=== PATIENT | male | born 1960 | race Caucasian/White ===

== ENCOUNTER 2023-08-09 09:11 | Outpatient (AMB) | payer OTHER, SELFPAY ==
--- NOTE | 2023-08-09 09:22 | A.SPINEOV_ITS ---
Intake Intake Visit Reasons: low back pain Intake Note: Mr. Gutiérrez is here today c/o low back pain. MRI done @ [facility]/brought disc. 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 Wang Thank you for referring Russell Gutiérrez to the office today with a chief complaint of severe low back pain and bilateral leg pain. HPI: This 63-year-old male is suffering from severe lumbar sacral back pain radiating down both legs with the right side is more affected than the left side. The symptoms have been going on for years. He tried to manage the symptoms with heating and eyes pads, chiropractic treatments epidural steroid injections and anti-inflammatory drugs. In February 2023 he hit a pothole, which aggravate the symptoms to on tolerable levels. The pain is constantly present, day and night. The pain radiates from his lumbar sacral spine into his right leg to the calf and top of his foot. On the left side it only goes to his knee. He would rate the pain 8/10 on a daily basis. The chiropractor told him that he could not helping any longer. Last epidural steroid injection was approximately 4 years ago and never worked. He denies weakness, numbness bowel or urinary problems. 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 He is taking care of his disabled parents, which is very hard to do. The following conservative treatment options were tried without success antiinfl ammatories, tylenol, physician guided home exercise plan, cortisone shots PMH: TBI, left knee surgery, 2 times or rotator cuff repair. Social history: Used to smoke. Medications: Trazodone, Cymbalta, Tylenol 4 g per day Allergies: NKDA Physical Exam: Pleasant male who is in obvious agony. He stands in a flexed position. On inspection of the lumbar spine there is a lumbar scoliotic curve towards the right side. Flexion-extension is restricted and painful. Straight leg raise produces back pain. Motor exam shows a grade 4/5 weakness of the iliopsoas. The remainder of the muscle groups are intact. Sensory exam is intact. No pathological reflexes. Radiological Studies: An x-ray lumbar spine of 06/07/2023 was compared to an x- ray of 09/01/2018 and shows severe degenerative disc disease L2-3, L3-4 and L4-5 with a near collapse of these levels and a progressive lumbar degenerative scoliosis with curvature towards the right side. I interpreted the x-ray is having 6 lumbar vertebrae. An MRI of the lumbar spine MRI done at [place] on 06/12/2023 shows again the lumbar degenerative scoliosis and severe lumbar degenerative disc disease of the above-mentioned levels causing moderate to severe spinal stenosis L3-4 and L4-5 and severe right L4 foraminal stenosis. Impression/Plan: This patient is suffering from intractable low back pain and lumbar radiculopathy due to lumbar degenerative scoliosis, severe degenerative disc disease and spinal stenosis, not respond to conservative treatments. I offered him a minimally invasive correction of his lumbar degenerative scoliosis that will indirectly decompress the neural structures to treat his back pain and lumbar radiculopathy. We discussed to minimally invasive approaches, the 1st being in the oblique lateral lumbar interbody fusion and the 2nd 1 being in the oblique lumbar interbody fusion. We decided on the last 1 as this has slightly less chance of nerve injury during the procedure although both procedures are ve ry safe. I discussed procedure, possible complications and expected postoperative course. He is going to discuss the plan at home but he is scheduled for 10/16/2023 for an oblique lumbar interbody fusion L2-3, L3-4 and L4-5. Thank you for allowing me to participate in your patients care. total time spent was 50 minutes in counseling ,coordination of plan, personal review of imaging, surgical decision making and subsequent plan Estrada Ashby MD, PhD Spine Fellowship Trained Neurosurgeon Director, [facility] Coding Level of Care Code New Pt Level 4 (92988) Diagnoses Scoliosis of lumbar region due to degenerative disease of spine in adult M41.56 Lumbar stenosis with neurogenic claudication M48.062
== END 2023-08-09 10:41 | disposition home or self-care (01) ==
PROVIDERS: PCP Internal Medicine; Visit Provider Neurological Surgery
DX: M41.56 Other secondary scoliosis, lumbar region (principal); M48.062 Spinal stenosis, lumbar region with neurogenic claudication
CPT/HCPCS: 99204

== ENCOUNTER → 2023-08-09 09:11 | Outpatient (BNVA) | payer OTHER, SELFPAY | PROVIDERS: PCP Internal Medicine; Visit Provider Neurological Surgery ==

== ENCOUNTER 2023-10-16 06:23 | Inpatient (IN) | payer OTHER, SELFPAY ==
--- NOTE | 2023-10-02 | ECG_ITS ---
Test Reason : preop Blood Pressure : / mmHG Vent. Rate : 059 BPM Atrial Rate : 059 BPM P-R Int : 128 ms QRS Dur : 086 ms QT Int : 372 ms P-R-T Axes : 039 -08 052 degrees QTc Int : 368 ms Sinus bradycardia Minimal voltage criteria for LVH, may be normal variant ( R in aVL ) Borderline ECG No previous ECGs available Referred By: Ilsa Shepherd Electronically Signed By:JAVIER ANDINO MD
[2023-10-02 12:56] VITALS: BP 150/90; PULSE 77; RESP 20; O2SAT 98; BMI 27.7
--- NOTE | 2023-10-02 13:08 | P.CONAN_ITS ---
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 Last seen 2019. Medically optimized per PCP No recent illness CP with anxiety only. No SOB Smoker. PARVEEN. Rx'd CPAP but does not use AAA. 4.3cm in 2021 (increased from 2019) Hep C tx completed ~ 5 years ago Current front upper tooth with concern for infection. Pt trying to make dental appointment. ~UPDATE: Pt went to walk-in and rec'd clindamycin for dental infection. Will be completed by DOS. STEVIE Active Problems Active Problems: All Active Problems (Updated 10/02/23 @ 12:52 by Deb Rapp RN) Lumbar stenosis with neurogenic claudication (Acute) Scoliosis of lumbar region due to degenerative disease of spine in adult (Acute) Past Medical History Medical History Arthritis Back pain Sleep apnea Hepatitis C Ascending aorta dilatation History of traumatic head injury Family History Family history of problems with anesthesia: No Surgical History Surgical History Hx of fusion of cervical spine H/O colonoscopy Hx of arthroscopic knee surgery Hx of repair of rotator cuff History of Problems with Anesthesia: No Social History (Updated 09/29/23 @ 09:22 by Deb Rapp RN) 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 If so, by whom?: No Are you DNR?: No Advance Directives: No (states daughter is primary contact) Advance Directives Information Provided: Yes (brochure given) Advance Directives on File: No Recently lost weight without trying: No Eating poorly because of decreased appetite: No Nutrition Risks: No Nutritional Risk Poor oral hygiene: No (painful tooth upper right front) Meds Allergies Allergy/AdvReac Type Severity Reaction Status Date / Time morphine AdvReac Intermediate does not Verified 10/02/23 13:05 relieve pain Home Medications Medication Instructions Recorded Confirmed Last Taken Type hydroxyzine HCl 50 mg tablet 50 mg PO Q8H PRN anxiety 09/29/23 10/02/23 Unknown History trazodone 100 mg tablet 100 mg PO BEDTIME 09/29/23 10/02/23 Unknown History Exam Exam Date and Time: October 02, 2023 1308 Height,Weight and Vital Signs: Height 5 ft 10 in Weight 87.543 kg Last Vital Signs Pulse 77 10/02/23 12:56 Resp 20 10/02/23 12:56 BP 150/90 H 10/02/23 12:56 Pulse Ox 98 10/02/23 12:56 O2 Del Method Room Air 10/02/23 12:56 Airway TM Dist: >3cm (s/p c spine fused ~2011) Neck ROM: Full Loose/Missing/Broken Teeth: Yes (Broken throughout, many pulled. Poor dentition) Heart: RRR Lungs: CTAB Assessment and Plan Assessment Anesthesia Assessment: Anesthesia Plan Discussed, Smoking Cess. 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 If so, by whom?: No Are you DNR?: No Advance Directives: No (states daughter is primary contact) Advance Directives Information Provided: Yes (brochure given) Advance Directives on File: No Recently lost weight without trying: No Eating poorly because of decreased appetite: No Nutrition Risks: No Nutritional Risk Poor oral hygiene: No (painful tooth upper right front) Meds Allergies Allergy/AdvReac Type Severity Reaction Status Date / Time morphine AdvReac Intermediate does not Verified 10/02/23 13:05 relieve pain Home Medications Medication Instructions Recorded Confirmed Last Taken Type hydroxyzine HCl 50 mg tablet 50 mg PO Q8H PRN anxiety 09/29/23 10/02/23 Unknown History trazodone 100 mg tablet 100 mg PO BEDTIME 09/29/23 10/02/23 Unknown History Exam Airway Mallampati Class: III Assessment and Plan Assessment Anesthesia Assessment: Chart Reviewed Final Anesthetic Review NPO: Yes ASA Class: III Final Preanesthetic Review: No Changes in Pt Med Stat, Meds/Allgs Chart Reviewed, Consent Obtained/Reviewed and Anes Risks/Benef Reviewed Patient Risk: Intermediate Procedure Risk: Intermediate Anesthetic Plan Anesthetic Plan: GA Disposition: Standard PACU
[2023-10-02 14:45] LABS: Hematocrit 46.2 % (42.0-52.0); Hemoglobin 15.6 g/dl (14.0-18.0); Mean Corpuscular HGB Conc 33.8 g/dl (31.0-36.0); Mean Corpuscular Hemoglobin 33.4 pg (27.0-33.0); Mean Corpuscular Volume 98.9 fL (80.0-98.0); Mean Platelet Volume 9.1 fL (9.4-12.4); Platelet Count 254 X10*3/uL (160-400); Red Blood Count 4.67 X10*6/uL (4.60-5.80); Red Cell Distribution Width 13.7 % (11.0-16.0); White Blood Count 6.4 X10*3/uL (4.8-10.8)
[2023-10-02 15:25] LABS: Alanine Aminotransferase 24 U/L (0-40); Albumin Level 4.1 g/dL (3.5-5.0); Alkaline Phosphatase 84 U/L (39-117); Anion Gap 12 (12-20); Aspartate Amino Transferase 19 U/L (5-37); Bilirubin Total 0.5 mg/dL (0.0-1.0); Blood Urea Nitrogen 9 mg/dL (9-16); Calcium 9.4 mg/dL (8.4-10.2); Carbon Dioxide 26 mmol/L (22-29); Chloride 105 mmol/L (96-108); Creatinine Clr Calc Pharmacy 90.9; Estimated Glomerular Filt Rate > 60; Glucose Random 101 mg/dL (60-115); Potassium 3.7 mmol/L (3.3-5.1); Sodium 139 mmol/L (135-145); Total Protein 6.9 g/dL (6.5-8.0)
[2023-10-16] VITALS (13 sets, daily range): BP systolic 105–138; BP diastolic 57–79; PULSE 61–106; RESP 14–21; TEMP 36.1–36.7; O2SAT 94–100; BMI 30.7
--- NOTE | ~2023-10-16 | FL_ITS ---
EXAMINATION: XR FLUOROSCOPY WITH IMAGES CLINICAL INFORMATION: Reason for exam L2-L5 OLIF COMPARISON: None available. TECHNIQUE: Fluoroscopy Supervised By: Symone. Fluoroscopy Time: 3 minutes. Cumulative Dose: 199.1 mGy. DAP: 3.104 Gycm2. Images: 4. FINDINGS: On provided imaging there appears to be pedicle screw and meeta fixation L2-L5 with interbody spacers. The actual levels are difficult to evaluate well on provided imaging. Hardware appears intact. FL/FL guidance in OR IMPRESSION: Intraoperative fluoroscopy for orthopedic procedure.
[2023-10-16] MEDS: Gabapentin 300 MG CAPSULE PO (06:40)
[2023-10-16] MEDS: methocarbamoL 750 MG TABLET PO (06:40)
--- NOTE | 2023-10-16 07:04 | MHC.SHP ---
Pre-Procedural Eval Section A Date of Service: 10/16/23 The patient is an INPATIENT: No Changes since office visit: No Cold of Flu in the past 2 weeks, No New Medical Problems, No Changes in Medication and No Patient answered all questions The History & Physical has been completed within 30 days and I have reviewed it.: No Section B Chief Complaint: S/P L2-3, L3-4 and L4-5 OLIF Allergies: Allergies Allergy/AdvReac Type Severity Reaction Status Date / Time morphine AdvReac Intermediate does not Verified 10/02/23 13:05 relieve pain Review of Systems Sugical H&P ROS: Negative: Constitution, Cardiovascular, Respiratory, Neurological, Psychiatric, Hem-Onc, Allergic/Immunologic, Gastrointestinal, Genitourinary, Musculoskeletal, Integumentary, Endocrine and Eyes/Ears/Nose/Throat Exam Surgical H&P Exam: Not Evaluated: HEENT, Not Evaluated: Heart, Not Evaluated: Lungs, Not Evaluated: Extremities, Not Evaluated: Abdomen, Not Evaluated: Skin and Not Evaluated: Neurological Plan Diagnosis/Plan: Unchanged I have reviewed the history and physical and performed a pertinent physical examination on my patient. No changes have occurred unless specified. L2-5 OLIF Time Spent With Patient Time: Total time managing care of this patient today _12___ minutes.
--- NOTE | 2023-10-16 07:29 | PHA.MEDREC ---
Pharmacy Consult ? Medication Reconciliation Pharmacy has completed the medication reconciliation. Reviewed med rec done by nursing
--- NOTE | 2023-10-16 11:13 | W.PM.OPN ---
Operative Note Operative Note Date of Service: 10/16/23 Narrative: Preop Diagnosis: 1.) Lumbar degenerative scoliosis; back pain; lumbar radiculopathy I Procedure: L2-3, L3-4 and L4-5 discectomy, arthrodesis and implantation cage through an anterolateral, retroperitoneal approach; posterior instrumented fusion L2-L5; allograft Consent Informed Consent was obtained for this operation. I have explained the nature, purpose and benefits of the operation. I have discussed the risks and benefit of the operation including possible complications or adverse events with patient/family. Alternative(s) were discussed with the patient with their relative benefits and risks as well as the consequences of not accepting the operation were included in obtaining consent. Surgeon: EDWINA ARTIS MD, PHD Procedure Assisted By: Kobe RDZ Description of Procedure this 63-year-old male is suffering from severe back pain and leg pain due to her lumbar degenerative scoliosis. The patient was offered an oblique lumbar interbody fusion L2-L5 to correct the scoliosis and to indirectly decompress the nerve structures. The procedure and complications were explained. The patient was consented. The patient was brought to the operating room and endotracheally intubated. The patient was turned in a lateral position with the left side up. Prep and drape was done followed by timeout. A small incision was made in the left lower abdominal quadrant. The muscle fascia was opened after which the 3 muscle layer was split to enter the retroperitoneal space. Dilators were docked in the anterior one third of the L4-5 disc space followed by a retractor. The retractor was opened. The L4-5 disc space was exposed. An annulotomy was done after which an elevator Diaz was used to release the disc material from its endplates and to perforate the contralateral side. A partial discectomy was done. An 8 mm and 10 mm height trial implants were inserted. The discectomy was completed. The endplates were prepared. An 55 x 10 mm with 6degree lordosis 4 web cage filled with allograft was inserted into the disc space under fluoroscopic guidance. Then attention was turned to the L3-4 disc space. A lateral osteophyte was opened with an osteotome after which a 7 mm an 8 mm trial implants were inserted. This disc space was completely collapsed and therefore no significant disc removal needed to be done. A 55 x 8 mm and 0 degree lordosis 4 web cage filled with allograft was inserted into the disc space under fluoroscopic guidance. Finally the L2-3 level was addressed where a 55 x 10 mm and severe degree lordosis 4 web cage was inserted with allograft.This resulted in correction of the lumbar degenerative scoliosis in the coronal plane and sagittal plane with reestablishment of the lumbar lordosis. The retractor was removed. Hemostasis was done. The incision was closed in 2 layers. Steri-Strips used to approximate incision. An OpSite with Tegaderm was used to cover the incision. This marked first part of the procedure. The patient was turned prone on the Imtiaz spine table. 2C arms were installed for fluoroscopy. Prep and drape was done followed by a second timeout. A total of 8 paramedian incisions were made lateral from the L2, L3, L4 and L5 pedicles. The muscle fascia was opened after which the muscle layer was split bluntly to expose the posterolateral gutter. The following steps were taken for each level. A pediguard tap was used to create a transpedicular trajectory into the vertebral body. A K wire was placed. A specially designed instrument was advanced over the K wire to decorticate the posterolateral gutter in preparation for the posterolateral fusion. A pedicle screw was advanced over the K wire and the K wire was removed. The steps were done for the bilateral L2, L3, L4 and L5 pedicles. A total of 8 screws were placed with a diameter of 6.5 x 50 mm in the L2, L3 and L4 pedicles and 6.5 x 45 mm in the bilateral L5 pedicles. Pedicle screws were connected with 95 mm meeta on the right and 100 mm meeta on the left and locked down with locking caps. The extension towers were removed. The posterolateral gutter was filled with allograft to complete the posterolateral L2-L5 fusion Hemostasis was done and the incision was closed in 2 layers. Steri-Strips were used to approximate the incision. An OpSite were taken and was used to cover the incision. All sponge and needle counts were correct. Patient was extubated and transferred in stable is to recovery room. The physician assistant director of residence life took part in the interpretation of the x-rays, placement of pedicle screws and closure of the incisions. Anesthesia: General Estimated Blood Loss (ml): 150 mL Duration of Surgery: 3 hours Complications: None Postoperative Plan: Admit to inpatient for observation
--- NOTE | 2023-10-16 11:42 | PHA.MEDREC ---
Pharmacy Consult ? Medication Reconciliation Pharmacy has reviewed the medication reconciliation.
[2023-10-16] MEDS: fentaNYL citrate/PF 100 MCG/2 ML VIAL 50 MCG IVPUSH ×2 (12:12→12:20)
[2023-10-16] MEDS: HYDROmorphone HCl 0.5 MG/0.5 ML SYRINGE IVPUSH (12:46)
[2023-10-16] MEDS: oxyCODONE HCl Immed Release 5 MG TABLET 10 MG PO (13:04)
[2023-10-16] MEDS: Ketorolac Tromethamine 15 MG/ML VIAL IVPUSH ×2 (14:06→20:31)
[2023-10-16] MEDS: 0.9 % Sodium Chloride 1,000 ML 75 ML IVCONT (14:08)
[2023-10-16] MEDS: ceFAZolin Sodium/Dextrose,Iso 2 GM/50 ML PIGGYBACK IV ×2 (14:50→19:46)
[2023-10-16] MEDS: Acetaminophen 1,000 MG/100 ML PIGGYBACK 400 MG IV ×2 (15:37→22:21)
[2023-10-16] MEDS: HYDROmorphone HCl 1 MG/ML SYRINGE IVPUSH ×2 (16:09→22:42)
[2023-10-16] MEDS: Docusate Sodium 100 MG CAPSULE PO (20:31)
[2023-10-16] MEDS: hydrOXYzine HCL 50 MG TABLET PO (20:31)
[2023-10-16] MEDS: oxyCODONE HCl Immed Release 5 MG TABLET PO (20:31)
[2023-10-16] MEDS: traZODone HCL 100 MG TABLET PO (20:31)
[2023-10-17] MEDS: oxyCODONE HCl Immed Release 5 MG TABLET PO (00:20)
[2023-10-17] MEDS: ceFAZolin Sodium/Dextrose,Iso 2 GM/50 ML PIGGYBACK IV (00:21)
[2023-10-17] MEDS: Ketorolac Tromethamine 15 MG/ML VIAL IVPUSH ×4 (01:50→19:46)
[2023-10-17] MEDS: 0.9 % Sodium Chloride 1,000 ML 75 ML IVCONT (02:04)
[2023-10-17] MEDS: HYDROmorphone HCl 0.5 MG/0.5 ML SYRINGE IVPUSH ×2 (02:24→12:26)
[2023-10-17 03:45] VITALS: BP 111/58; PULSE 73; RESP 16; TEMP 36.4; O2SAT 98
[2023-10-17] MEDS: Acetaminophen 1,000 MG/100 ML PIGGYBACK 400 MG IV ×4 (04:54→21:54)
[2023-10-17] MEDS: oxyCODONE HCl Immed Release 5 MG TABLET 10 MG PO ×4 (05:03→19:45)
[2023-10-17] MEDS: HYDROmorphone HCl 1 MG/ML SYRINGE IVPUSH (05:58)
[2023-10-17 07:17] VITALS: BP 112/53; PULSE 70; RESP 16; TEMP 36.8; O2SAT 96
[2023-10-17] MEDS: Docusate Sodium 100 MG CAPSULE PO ×2 (07:40→22:59)
--- NOTE | 2023-10-17 07:52 | HO.NEURO.PN ---
Neurosurgery Operative Note Date of Service: 10/17/23 Narrative: Postoperative day 1. L2-5 minimally invasive oblique lumbar interbody fusion Patient reports back pain, denies any radicular pain down the legs. He does have little bit of groin pain. He has been up walking around, he is voiding and tolerating a diet okay. Afebrile, vital signs stable Physical exam: Patient is awake alert oriented lying bed no acute distress, demonstrates full strength of bilateral lower extremities, abdomen nondistended nontender, left lower quadrant incision clean and dry no signs of hematoma, back incisions have small amount of stating on the right side otherwise clean and dry no signs of hematoma. Impression: Postop day 1. L2-5 minimally invasive oblique lumbar interbody fusion, visually clinically doing okay, he has been up walking around, is voiding and tolerating a diet. He has a somewhat complicated social situation at home and that he is living alone, is requesting another day in the hospital just to improve his mobility before he gets back to his home. Dr. Ashby is I saw him together, we think this is reasonable, we will transition him off IV medications and continue p.o., and plan for discharge tomorrow.
[2023-10-17 08:07] VITALS: BP 112/53; PULSE 70; O2SAT 96
--- NOTE | 2023-10-17 09:08 | HO.POSTANES ---
Post Anesthesia Evaluation Post Anesthesia Evaluation Date of Service: 10/17/23 Vital Signs: Vital Signs Temp Pulse Resp BP Pulse Ox O2 Del Method 10/17/23 08:07 70 112/53 L 96 10/17/23 07:17 98.3 F 70 16 112/53 L 96 Room Air 10/17/23 03:45 97.6 F 73 16 111/58 L 98 Room Air 10/16/23 23:49 98.1 F 88 16 105/63 94 Room Air Anesthesia: General Endotracheal-GETA Mental Status: Awake Pain Control: Satisfactory (mild back pain) Nausea/Vomiting: None Hydration: Adequate Anesthesia-Related Issues: No Anes. Related Issues
--- NOTE | 2023-10-17 09:10 | MHC.CM.PN ---
CM MET WITH PT AT BEDSIDE. 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 INDEPENDENT AT BASELINE, USES CANE FOR MAJOR MOBILITY. + THRIVE ASSESSMENT, RESOURCE GUIDE PROVIDED. PT IS ALSO THINKING OF CHANGING PCP, [facility] PROVIDED WELL. +HCP ON CHART. PCP DR.ANTONE SANTOS DP: HOME, NO SERVICES ANTICIPATED. PT WILL NEED SCRIPT FOR WALKER PER P.T. REC. PT HAS OWN RIDE HOME. CM WILL CONTINUE TO FOLLOW FOR ANY CHANGE IN DC PLAN/NEEDS.
[2023-10-17] MEDS: Nicotine 7 MG PATCH.TD24 TRANSDERMA (10:21)
[2023-10-17 15:51] VITALS: BP 137/63; PULSE 90; RESP 17; TEMP 36.8; O2SAT 100
[2023-10-17 19:30] VITALS: BP 137/77; PULSE 95; RESP 19; TEMP 36.6; O2SAT 98
[2023-10-17] MEDS: traZODone HCL 100 MG TABLET PO (23:00)
--- NOTE | 2023-10-17 23:04 | PC.NURSE ---
patient complained that his pain is not controlled ,but refuses for nurse to contact surgeon to address pain
[2023-10-18] MEDS: Ketorolac Tromethamine 15 MG/ML VIAL IVPUSH ×2 (01:49→07:52)
[2023-10-18 02:49] VITALS: BP 133/68; PULSE 95; RESP 16; TEMP 36.8; O2SAT 96
[2023-10-18] MEDS: Acetaminophen 1,000 MG/100 ML PIGGYBACK 400 MG IV (04:11)
[2023-10-18] MEDS: oxyCODONE HCl Immed Release 5 MG TABLET 10 MG PO ×2 (04:26→10:18)
[2023-10-18] MEDS: Docusate Sodium 100 MG CAPSULE PO (07:52)
[2023-10-18] MEDS: Nicotine 7 MG PATCH.TD24 TRANSDERMA (07:52)
[2023-10-18 08:00] VITALS: BP 128/71; PULSE 79; RESP 18; TEMP 36.9; O2SAT 95
--- NOTE | 2023-10-18 09:08 | P.DS_ITS ---
DS: Providers Provider Date of Service: 10/18/23 Date of admission: 10/16/23 06:23 Primary care physician: Robb Wang III, MD DS: Summary Time Attestation Discharge coordination time: Less than 30 minutes Quality: Safe Use of Opioids Does Pt have an Active Cancer Diagnosis on the Problem List?: No Quality: Stroke Does the patient have a stroke diagnosis?: No Physical Exam Vital Signs: Vital Signs: Last Vital Signs Temp 98.4 F 10/18/23 08:00 Pulse 79 10/18/23 08:00 Resp 18 10/18/23 08:00 BP 128/71 10/18/23 08:00 Pulse Ox 95 10/18/23 08:00 O2 Del Method Room Air 10/18/23 08:00 O2 Flow Rate 2 10/16/23 19:20 BMI result Body Mass Index 30.7 Discharge Plan Discharge Anticipated Discharge Date/Time: 10/18/23 09:08 Patient Disposition: Home, Self-Care Discharge Diagnosis: S/p L2-5 OLIF Referrals: Robb Wang III, MD [Primary Care Provider] - 1 Week Discharge Medications: New oxycodone 5 mg tablet 5 mg PO Q4-6H PRN (Reason: SEVERE PAIN) Qty: 40 0RF Rx Instructions: Partial Fill upon patient request. acetaminophen 500 mg tablet 1,000 mg PO TID PRN (Reason: mild-moderate pain) Qty: 84 0RF gabapentin 300 mg capsule 300 mg PO TID Qty: 42 0RF Continued hydroxyzine HCl 50 mg tablet 50 mg PO Q8H PRN (Reason: anxiety) trazodone 100 mg tablet 100 mg PO BEDTIME Discharge Orders: Discharge Order (Routine); Ordered 10/18/23 Ordered By: Jason Lemons Diet: Advance to usual diet Activity on Discharge: As tolerated Stand Alone Forms: Patient Portal Discharge page Care Plan Goals: Return to normal activity as tolerated. Health Concerns: None. Plan of Treatment: Follow-up in clinic in 2-3 weeks. Assessment: POD: 2 Procedure: L2-5 FRANK Wells reports he is up walking around every 2-3 hours but continues to experience quite a bit of pain. He expressed concerns regarding this pain, which we discussed at great length. Despite the pain is still able to get up out of bed, ambulate to the bathroom, and was found this morning sitting in a regular chair at his window-side table eating breakfast. He reports no concerns with voiding or eating. Afebrile, vital signs stable. Full strength 5/5 UE / LE despite pain. Back dressings have some staining without signs of hematoma. Left lindsey-lateral dressing is dry without signs of staining or hematoma. No active sanguineous drainage. Plan: Patient meets criteria to be medically discharged home. He will be sent home with a prescription of gabapentin, oxycodone, and Tylenol to help with pain control. A prescription for a walker per the patient's request was faxed to [facility] in [place] on [email or web address]. This was discussed with the attending neurosurgeon Dr. Ashby who is in agreement with this plan. Jason Ashby MD,PhD [facility]
--- NOTE | 2023-10-18 09:18 | HO.NEUROPN_ITS ---
Neurosurgery Operative Note Date of Service: 10/18/23 Narrative: POD: 2 Procedure: L2-5 FRANK Wells reports he is up walking around every 2-3 hours but continues to experience quite a bit of pain. He expressed concerns regarding this pain, which we discussed at great length. Despite the pain is still able to get up out of bed, ambulate to the bathroom, and was found this morning sitting in a regular chair at his window-side table eating breakfast. He reports no concerns with voiding or eating. Afebrile, vital signs stable. Full strength 5/5 UE / LE despite pain. Back dressings have some staining without signs of hematoma. Left lindsey-lateral dressing is dry without signs of staining or hematoma. No active sanguineous drainage. Plan: Patient meets criteria to be medically discharged home. He will be sent home with a prescription of gabapentin, oxycodone, and Tylenol to help with pain control. A prescription for a walker per the patient's request was faxed to [facility] in [place] on [id number]. This was discussed with the attending neurosurgeon Dr. Ashby who is in agreement with this plan. Jason Ashby MD,PhD [facility]
--- NOTE | 2023-10-18 09:29 | MHC.CM.PN ---
DP: PT HAS BEEN MEDICALLY CLEARED FOR DC HOME, NO SERVICES. PT HAS OWN RIDE HOME.
== END 2023-10-18 11:59 | disposition home or self-care (01) | DRG 304 ==
LOC: HO.SSSA 06:28 → HO.S3 11:54
PROVIDERS: Neurological Surgery; Nurse Practitioner; Admitting Provider Physician Assistant; PCP Internal Medicine; Visit Provider Physician Assistant
PROC: 0SG10A0 Fusion of 2 or more Lumbar Vertebral Joints with Interbody Fusion Device, Anterior Approach, Anterior Column, Open Approach (ICD-10-PCS; principal; 2023-10-16 07:30)
DX: M54.16 Radiculopathy, lumbar region (principal); M41.56 Other secondary scoliosis, lumbar region; G47.30 Sleep apnea, unspecified; F17.210 Nicotine dependence, cigarettes, uncomplicated; Z87.820 Personal history of traumatic brain injury; Z71.6 Tobacco abuse counseling; Z79.899 Other long term (current) drug therapy
CPT/HCPCS: 36415; 80053; 85027; 86850; 86900; 86901; 93005; 97162; C1713; J0131; J0690; J1100; J1170; J1885; J2250; J2371; J2405; J2704; J3010; L8699

== ENCOUNTER → 2023-10-16 06:23 | Outpatient (BNV) | payer OTHER, SELFPAY | PROVIDERS: Admitting Provider Physician Assistant; PCP Internal Medicine; Visit Provider Neurological Surgery | DX: M48.062 Spinal stenosis, lumbar region with neurogenic claudication (principal); M41.56 Other secondary scoliosis, lumbar region | CPT/HCPCS: 20930; 22558; 22585; 22612; 22614; 22840; 22853; 99024; 99499 ==

== ENCOUNTER 2023-11-03 11:09 | Outpatient (REF) | payer OTHER, SELFPAY ==
--- NOTE | ~2023-11-03 | XR_ITS ---
EXAMINATION: XR LUMBOSACRAL SPINE WITH OBLIQUES CLINICAL INFORMATION: Spinal stenosis lumbar region with neurogenic claudication. COMPARISON: Intraoperative imaging 10/16/2023. TECHNIQUE: AP and lateral views of the lumbosacral spine as well as lateral flexion and extension views. FINDINGS: There are postoperative changes related to lumbar fusion. There may be 6 [id number] lumbar vertebrae. Correlate with full spine imaging for numbering of the lumbar levels. There is posterior hardware with pedicle screws and connecting rods along with interbody spacers noted at 3 contiguous disc levels which appears to be either L3 through S1 or L2 through L5 as reported previously. No change. Incidental note made of plate and screw fixation overlying the left 9th rib. The surrounding bone and soft tissues are unremarkable. XR/XR lumbar spine 4V min IMPRESSION: Postoperative changes related to lumbar fusion, unchanged compared with intraoperative imaging. Correlate with full spine imaging for numbering of the lumbar levels.
== END 2023-11-03 11:10 | disposition home or self-care (01) ==
LOC: HO.HOSX 11:09
PROVIDERS: PCP Internal Medicine; Visit Provider Physician Assistant
DX: M48.062 Spinal stenosis, lumbar region with neurogenic claudication (principal); Z47.89 Encounter for other orthopedic aftercare; Z98.890 Other specified postprocedural states
CPT/HCPCS: 72110; 99212

== ENCOUNTER 2023-11-03 11:09 | Outpatient (AMB) | payer OTHER, SELFPAY ==
--- NOTE | 2023-10-25 12:16 | ...WebTmpl.AM.PHNO ---
Nursing Note The patient called the office requesting to discuss his pain control. He reports that he is in severe pain despite acetaminophen 1000 mg 3 times a day accompanied by oxycodone 5 mg every 4-6 hours. He reports he has been unable to take the gabapentin medication because it causes an adverse reaction of burning in his tongue/mouth when he attempts to consume the medication. He reports that this medication regimen is not working for him at all and is causing him to experience significant severe pain that is worse than before surgery. He reported that he has had back problems in the past and that Vicodin has worked for him to provide significant pain relief more so than oxycodone. He also reported that he is now almost out of his oxycodone medication and only has 2 left. Therefore a prescription for Vicodin 5-300mg x 40 was sent in to his pharmacy on record. His gabapentin was stopped, and replaced with methocarbamol 750mg tid. His acetaminophen was changed from a 1000 mg 3 times a day to 500 mg 3 times a day due to the acetaminophen component of Vicodin.
--- NOTE | 2023-11-03 14:10 | HO.SPINEOV ---
Intake Intake Visit Reasons: 1st post op Allergies No Known Allergies Allergy (Verified 10/16/23 17:09) Assessment & Plan Assessment & Plan (1) S/P spinal surgery: Code(s): Z98.890 - Other specified postprocedural states Plan Procedure: L2-5 FRANK Wells comes in today for his 1st postoperative visit. He reports a very difficult postoperative course. Russell has struggled extensively with pain control since his surgery. We attempted to start him on oxycodone postoperatively which was not enough to help control his pain. He was not sleeping, and was not able to accomplish anything throughout the day. We ended up switching him to Vicodin, gabapentin, and methocarbamol. This combination also was not suitable for him. He reported that the gabapentin made his tongue burn, and that the Vicodin did not do anything despite his request to start Vicodin because he reported good pain control with it in the past. Today during this visit he was requesting another changed his pain medication regimen, because he feels it is not sufficient and continues to lose sleep (wakes up in severe pain) and remains in constant pain throughout the day. Of note, and on a more positive side Russell reports that his testicular swelling/bruising has completely resolved since we last discussed this issue via the patient portal. No new neurological deficits. Patient is able to ambulate well with assistance of a walker, rises from a seated position without difficulty. Incision sites are closed, well healing, with no signs of drainage. We will follow-up with the patient in 6 weeks for his 2nd postoperative visit. At that time we will get x-rays to review with the patient. I discontinued his Vicodin prescription and prescribed Dilaudid 4 mg p.o. q.6 hours p.r.n. severe pain. I also ordered a set of lumbar spine x-rays which I told Russell I would review / call him once the radiologist has read them. Jason Ashby MD,PhD [facility] Orders: Orders XR lumbar spine 4V min Today M48.062 - Spinal stenosis, lumbar region with neurogenic claudication Medications: New hydromorphone Partial Fill upon patient request. 4 mg PO Q6H 30 tabs 0RF severe pain Refilled methocarbamol 750 mg PO TID 42 tabs 0RF severe pain Discontinued hydrocodone-acetaminophen 5-300 mg Partial Fill upon patient request. Discontinued Reason: Doctor's Order 1 tab PO Q4-6H PRN 40 tabs 0RF severe pain (scale score 7-10) Coding Level of Care Code Global (48706) Diagnoses S/P spinal surgery Z98.890
== END 2023-11-03 12:46 | disposition home or self-care (01) ==
PROVIDERS: PCP Internal Medicine; Visit Provider Physician Assistant
DX: Z98.890 Other specified postprocedural states (principal)
CPT/HCPCS: 99024

== ENCOUNTER 2023-12-15 10:51 | Outpatient (REF) | payer OTHER, SELFPAY ==
--- NOTE | ~2023-12-15 | XR_ITS ---
EXAMINATION: XR LUMBOSACRAL SPINE WITH OBLIQUES CLINICAL INFORMATION: Postprocedural statu COMPARISON: 11/03/2023 lumbar spin TECHNIQUE: AP and lateral views of the lumbar spine. FINDINGS: Advanced degenerative changes in the imaged lower thoracic and upper lumbar spine. Bones are diffusely demineralized. As per prior report, for the purposes of this report there will be a presumption of 6 nonrib-bearing vertebral bodies for nomenclature. Please refer to complete imaging of the spine for appropriate nomenclature of spinal levels before any procedure/intervention. Redemonstration of postoperative changes of lumbar fusion. Redemonstration of posterior hardware with connecting rods and pedicle screws as well as interbody spacers at 3 contiguous disc levels which again represent either L3-S1, or L2-L5 as previously reported. Hardware appears intact. Redemonstration of partially-imaged plate and screw fixation device overlying the lower left rib. XR/XR lumbar spine 4V min IMPRESSION: 1. Redemonstration of postoperative changes of lumbar fusion. Hardware appears intact. 2. Advanced degenerative changes in the imaged lower thoracic and upper lumbar spine. 3. As per prior report, for the purposes of this report there will be a presumption of 6 nonrib-bearing vertebral bodies for nomenclature. Please refer to complete imaging of the spine for appropriate nomenclature of spinal levels before any procedure/intervention.
== END 2023-12-15 10:52 | disposition home or self-care (01) ==
LOC: HO.HOSX 10:51
PROVIDERS: Visit Provider Physician Assistant
DX: M48.062 Spinal stenosis, lumbar region with neurogenic claudication (principal); Z98.890 Other specified postprocedural states
CPT/HCPCS: 72110; 99212

== ENCOUNTER → 2023-12-15 14:21 | Outpatient (AMB) | payer OTHER, SELFPAY ==
--- NOTE | 2023-12-15 14:41 | MHC.OFFVIS ---
Intake Intake Visit Reasons: 2nd post op with xrays Intake Note: Pt her for his 2nd post op with Xrays Quality Assurance Associate Required: No Allergies No Known Allergies Allergy (Verified 10/16/23 17:09) PFSH Medical History (Updated 10/31/23 @ 13:16 by KENDELL Eisenberg) Arthritis Back pain Sleep apnea Hepatitis C Ascending aorta dilatation History of traumatic head injury Surgical History (Updated 11/03/23 @ 14:15 by KENDELL Eisenberg) Hx of fusion of cervical spine H/O colonoscopy Hx of arthroscopic knee surgery Hx of repair of rotator cuff Social History (Updated 09/29/23 @ 09:22 by Deb Rapp RN) Household Members: Other Household Members Other:: 3 Housing: House Are you a primary manager critical care to a significant other at home: Yes ([employer]) Do you presently have visiting nurse or other home services: No Comment: all counts correct Patient Tobacco Use Status: Current everyday Tobacco user Tobacco use type: Cigarette Cigarettes Per Day: 15 Years Smoked: 51 service: No Assessment & Plan Assessment & Plan (1) Lumbar stenosis with neurogenic claudication: Code(s): M48.062 - Spinal stenosis, lumbar region with neurogenic claudication Plan Mr Gutiérrez is here in the office today to follow-up. He underwent an L2-5 oblique lumbar interbody fusion a few months back, but unfortunately has been suffering from severe radiculopathy going into his right buttock, right lateral thigh and into his right tibial region that is worse than it was before surgery. We had been following him hoping that it would pass with time but unfortunately it is only getting worse. He continues to take Dilaudid to help with the pain. I ordered a new MRI at [facility] and it appears to show ongoing lateral recess stenosis at the L4-5 disc level. I think this is likely the source of his symptoms. He also has superimposed slightly worse stenosis at L1-2. He does occasionally get claudicating symptoms into his anterior thighs, but it is mild and not something that really would have brought him back to the office for an MRI. It is the right leg pain that is really causing him significant discomfort. I talked about the fact that occasionally we will go back in and do decompression if patients have persistent long-lasting radiculopathy. I will speak with Dr. Ashby to see if this is something he thinks could help this gentleman's pain. Kobe Ashby MD, PhD [facility] Orders: Orders XR lumbar spine 4V min Today Z98.890 - Other specified postprocedural states Medications: Changed From hydromorphone Partial Fill upon patient request. 4 mg PO BID PRN 14 tabs 0RF severe pain To hydromorphone Partial Fill upon patient request. 4 mg PO Q8H PRN 30 tabs 0RF severe pain Coding Level of Care Code Global (11513) Diagnoses Lumbar stenosis with neurogenic claudication M48.062
== END ==
PROVIDERS: PCP Internal Medicine; Visit Provider Physician Assistant
DX: M48.062 Spinal stenosis, lumbar region with neurogenic claudication (principal)
CPT/HCPCS: 99024

== ENCOUNTER 2024-01-11 10:10 | Day surgery (SDC) | payer OTHER, SELFPAY ==
[2023-12-28 11:26] VITALS: BMI 27.3
--- NOTE | 2024-01-10 11:41 | P.CONAN_ITS ---
Documented by User: Ilsa Shepherd NP 01/10/24 11:44 HPI - Anesthesia Eval Consult details Narrative: 63yo M for Right L4-5 MicroLumbar decompression s/p OLIF 09/2023 with GA-ETT 7.5. No issues per anesthesia record Has fallen out of care with blow machine tender starch spraying. Last seen 2019. Medically optimized per PCP From 2022 PAT eval: No recent illness CP with anxiety only. No SOB Smoker. PARVEEN. Rx'd CPAP but does not use AAA. 4.3cm in 2021 (increased from 2019) Hep C tx completed ~ 5 years ago Current front upper tooth with concern for infection. Pt trying to make dental appointment. ~UPDATE: Pt went to walk-in and rec'd clindamycin for dental infection. Will be completed by DOS. HUBBARD Active Problems Active Problems: All Active Problems (Updated 10/31/23 @ 13:16 by KENDELL Eisenberg) S/P spinal surgery (Acute) Testicle swelling (Acute) Lumbar stenosis with neurogenic claudication (Acute) Scoliosis of lumbar region due to degenerative disease of spine in adult (Acute) Past Medical History Medical History (Updated 10/31/23 @ 13:16 by KENDELL Eisenberg) Arthritis Back pain Sleep apnea Hepatitis C Ascending aorta dilatation History of traumatic head injury Family History Family history of problems with anesthesia: No Surgical History Surgical History (Updated 12/28/23 @ 09:52 by Deb Rapp RN) History of lumbar fusion Hx of fusion of cervical spine H/O colonoscopy Hx of arthroscopic knee surgery Hx of repair of rotator cuff History of Problems with Anesthesia: No Social History Social History (Updated 09/29/23 @ 09:22 by Deb Rapp RN) Household Members: Other Household Members Other:: 3 Housing: House Are you a primary certified social workers in health care to a significant other at home: Yes (shares care of parents with brother) Do you presently have visiting nurse or other home services: No Comment: all counts correct Patient Tobacco Use Status: Current everyday Tobacco user Tobacco use type: Cigarette Cigarettes Per Day: 15 Years Smoked: 51 Use of substances other than those prescribed or required for medical reasons: No Have you been hit, kicked, punched, or otherwise hurt by someone within the past year? If so, by whom?: No Are you DNR?: No Advance Directives: No Advance Directives Information Provided: Yes Advance Directives on File: No Recently lost weight without trying: No Nutrition Risks: No Nutritional Risk Poor oral hygiene: No service: No Meds Allergies Allergy/AdvReac Type Severity Reaction Status Date / Time gabapentin AdvReac Blister Verified 01/11/24 10:29 Home Medications Medication Instructions Recorded Confirmed Last Taken Type hydroxyzine HCl 50 mg tablet 50 mg PO Q8H PRN anxiety 09/29/23 12/28/23 01/11/24 08:00 History trazodone 100 mg tablet 150 mg PO BEDTIME 09/29/23 12/28/23 Unknown History ibuprofen 200 mg tablet 400 mg PO Q8H 12/28/23 12/28/23 01/01/24 History Exam Height,Weight and Vital Signs: Height 5 ft 10 in Weight 86.183 kg Pertinent Lab Results Pertinent Lab Results: Laboratory Tests 10/02/23 13:48 WBC 6.4 Hgb 15.6 Hct 46.2 Plt Count 254 Sodium 139 Potassium 3.7 Chloride 105 Carbon Dioxide 26 BUN 9 Creatinine 0.87 Narrative Narrative: EKG 09/2023 Vent. Rate : 059 BPM Atrial Rate : 059 BPM P-R Int : 128 ms QRS Dur : 086 ms QT Int : 372 ms P-R-T Axes : 039 -08 052 degrees QTc Int : 368 ms Sinus bradycardia Minimal voltage criteria for LVH, may be normal variant ( R in aVL ) Borderline ECG No previous ECGs available Assessment and Plan Assessment Anesthesia Assessment: Chart Reviewed Final Anesthetic Review Family History of Problems with Anesthesia: No History of Problems with Anesthesia: No Documented by User: Betzy Ashby MD 01/11/24 10:41 [facility] Past Medical History Medical History (Updated 10/31/23 @ 13:16 by KENDELL Eisenberg) Arthritis Back pain Sleep apnea Hepatitis C Ascending aorta dilatation History of traumatic head injury Surgical History Surgical History (Updated 12/28/23 @ 09:52 by Deb Rapp RN) History of lumbar fusion Hx of fusion of cervical spine H/O colonoscopy Hx of arthroscopic knee surgery Hx of repair of rotator cuff Social History Social History (Updated 09/29/23 @ 09:22 by Deb Rapp RN) Household Members: Other Household Members Other:: 3 Housing: House Are you a primary certified social workers in health care to a significant other at home: Yes (shares care of parents with brother) Do you presently have visiting nurse or other home services: No Comment: all counts correct Patient Tobacco Use Status: Current everyday Tobacco user Tobacco use type: Cigarette Cigarettes Per Day: 15 Years Smoked: 51 Use of substances other than those prescribed or required for medical reasons: No Have you been hit, kicked, punched, or otherwise hurt by someone within the past year? If so, by whom?: No Are you DNR?: No Advance Directives: No Advance Directives Information Provided: Yes Advance Directives on File: No Recently lost weight without trying: No Nutrition Risks: No Nutritional Risk Poor oral hygiene: No service: No Meds Allergies Allergy/AdvReac Type Severity Reaction Status Date / Time gabapentin AdvReac Blister Verified 01/11/24 10:29 Home Medications Medication Instructions Recorded Confirmed Last Taken Type hydroxyzine HCl 50 mg tablet 50 mg PO Q8H PRN anxiety 09/29/23 12/28/23 01/11/24 08:00 History trazodone 100 mg tablet 150 mg PO BEDTIME 09/29/23 12/28/23 Unknown History ibuprofen 200 mg tablet 400 mg PO Q8H 12/28/23 12/28/23 01/01/24 History Exam Airway Mallampati Class: III TM Dist: >3cm Neck ROM: Full Assessment and Plan Assessment Anesthesia Assessment: Anesthesia Plan Discussed Final Anesthetic Review NPO: Yes ASA Class: III Final Preanesthetic Review: No Changes in Pt Med Stat, Meds/Allgs Chart Reviewed, Consent Obtained/Reviewed and Anes Risks/Benef Reviewed Patient Risk: Intermediate Procedure Risk: Intermediate Anesthetic Plan Anesthetic Plan: GA Disposition: Standard PACU
[2024-01-11] VITALS (15 sets, daily range): BP systolic 125–194; BP diastolic 52–97; PULSE 64–88; RESP 16–20; TEMP 36.3; O2SAT 96–100; BMI 27.6
--- NOTE | ~2024-01-11 | FL_ITS ---
INDICATION: Intraoperative fluoroscopy. FLUOROSCOPY: Fluoroscopy Time: 0.0 minutes Dose/air kerma: 2.46 mGy Images saved: 3 FINDINGS: Multiple intraoperative fluoroscopic images are submitted during reported L4-L5 microlumbar decompression. Correlation with operative report. Evaluation is limited secondary to fluoroscopic technique. IMPRESSION: Intra-operative fluoroscopic imaging provided by radiology during reported L4-L5 microlumbar decompression Please refer to operative note for further information.
--- NOTE | 2024-01-11 07:03 | P.HPSUR_ITS ---
Pre-Procedural Eval Section A - 24 Hr Update-Section A only Date of Service: 01/11/24 The patient is an INPATIENT: No Changes since office visit: No Cold of Flu in the past 2 weeks, No New Medical Problems, No Changes in Medication and No Patient answered all questions The patient has been examined within 24 hours of the surgical procedure. The History & Physical has been completed within 30 days and I have reviewed it.: No Section B - Complete if H&P > 30 days Chief Complaint: Spinal stenosis, lumbar region with neurogenic cla Allergies: Allergies Allergy/AdvReac Type Severity Reaction Status Date / Time No Known Allergies Allergy Verified 10/16/23 17:09 Review of Systems Sugical H&P ROS: Negative: Constitution, Cardiovascular, Respiratory, Neurological, Psychiatric, Hem-Onc, Allergic/Immunologic, Gastrointestinal, Genitourinary, Musculoskeletal, Integumentary, Endocrine and Eyes/Ears/Nose/Thr oat Exam Surgical H&P Exam: Not Evaluated: HEENT, Not Evaluated: Heart, Not Evaluated: Lungs, Not Evaluated: Extremities, Not Evaluated: Abdomen, Not Evaluated: Skin and Not Evaluated: Neurological Plan Diagnosis/Plan: Unchanged right L4-5 hemilaminotomy Time Spent With Patient Time: Total time managing care of this patient today __5__ minutes.
[2024-01-11] MEDS: Lactated Ringers 1,000 ML 100 ML IVCONT (10:32)
[2024-01-11] MEDS: methocarbamoL 750 MG TABLET PO (10:32)
--- NOTE | 2024-01-11 11:49 | P.DS_ITS ---
DS: Providers Provider Date of Service: 01/11/24 Date of discharge: 01/11/24 Primary care physician: Robb Wang III, MD Admitting clinician: Estrada Ashby DS: Diagnosis Discharge Diagnosis (1) Lumbar stenosis with neurogenic claudication: Status: Acute DS: Summary Time Attestation Discharge coordination time: Less than 30 minutes Quality: Safe Use of Opioids Does Pt have an Active Cancer Diagnosis on the Problem List?: No Quality: Stroke Does the patient have a stroke diagnosis?: No Physical Exam Vital Signs: Vital Signs: Last Vital Signs Temp 97.3 F 01/11/24 10:13 Pulse 79 01/11/24 10:13 Resp 20 01/11/24 10:13 BP 171/86 H 01/11/24 10:13 Pulse Ox 96 01/11/24 10:13 O2 Del Method Room Air 01/11/24 10:13 BMI result Body Mass Index 27.6 DS: Data Data Completed and Pending Completed studies during hospitalization [Text1]: Procedures Excision of Lumbar Vertebral Disc, Open Approach (10/16/23) Fusion of 2 or more Lumbar Vertebral Joints with Interbody Fusion Device, Anterior Approach, Anterior Column, Open Approach (10/16/23) Insertion of Interspinous Process Spinal Stabilization Device into Lumbar Vertebral Joint, Open Approach (10/16/23) Discharge Plan Discharge Patient Disposition: Home, Self-Care Referrals: Robb Wang III, MD [Primary Care Provider] - 1 Week Discharge Medications: New hydromorphone [Dilaudid] 4 mg tablet 4 mg PO Q8H PRN (Reason: pain) Qty: 20 0RF Rx Instructions: Partial Fill upon patient request. Continued acetaminophen 500 mg tablet 500 mg PO TID PRN (Reason: mild-moderate pain) Qty: 42 0RF hydromorphone 4 mg tablet 4 mg PO Q8H PRN (Reason: severe pain) Qty: 30 0RF Rx Instructions: Partial Fill upon patient request. hydroxyzine HCl 50 mg tablet 50 mg PO Q8H PRN (Reason: anxiety) trazodone 100 mg tablet 150 mg PO BEDTIME ibuprofen 200 mg Tablet 400 mg PO Q8H methocarbamol 750 mg tablet 750 mg PO TID Qty: 42 0RF Discharge Orders: Discharge Order (Routine); Ordered 01/11/24 Ordered By: Kobe Steven Diet: Advance to usual diet Activity on Discharge: As tolerated Activity Restrictions/Additional Instructions: After your spinal surgery we ask you to observe the following restrictions/guidelines: Activity: It is normal to feel some discomfort as you increase your activity, but that will improve with time. We ask you avoid heavy lifting or acitivities that cause pain. As a general rule, 8lbs is a safe limit for lifting right after surgery. Walk as much as you feel comfortable but not to exhaustion. You will feel extra tired the first few days after surgery. Stay well hydrated. It is OK to walk up and down stairs You may return to driving when you are off narcotics (such as vicodin, oxycodone, dilaudid, etc), and you are back to normal functional capacity. If y ou have any concerns please check with office before driving. Return to work is specific to each patient and each surgery, so please speak with your doctor/PA at first follow up. Please bring paperwork such as FMLA at that time if you need it filled out. Medications: For optimum pain control, it is best to start with a combination of 500 mg of Tylenol every 4 hours with 600 mg of Motrin every 8 hours, and use narcotics as needed in between for breakthrough pain. We will give you a short supply of narcotics after surgery (usually one weeks worth). If you need more please call the office but do not use more than prescribed. You will need to give our office 48 hours notice if you need narcotics refilled and we do not fill narcotics on weekends or evenings. If you are on a narcotic, it is a good idea to take a stool softener such as colace or senna to avoid constipation If you take blood thinner such as aspirin, Plavix, Coumadin, Effient, Eliquis etc for conditions such as Afib, DVT, Pulmonary embolus, coronary disease, stents etc please speak with your surgeon about specific details as to when you can resume these medications. You can resume NSAIDs on post op day 1 (eg: Motrin, Naproxen, etc). Follow up: Please call the office, , after surgery to arrange a 3 week follow up for wound check. Wound Care: You may remove your dressing on the first day after surgery. ?You may ?leave open to air. Please do not remove the steri strips underneath. they will fall off on their own in one week. IT IS NORMAL FOR THE WOUND TO OOZE OR BE BLOODY FOR A FEW DAYS AFTER SURGERY. ?IF THIS HAPPENS JUST PLACE NEW DRESSING OVER IT TO AVOID STAINING CLOTHES. You may shower on post op day # 1 We ask that you do not let the water soak the wound. If it does get wet, just towel dry lightly. Please do not scrub your incision or place any type of chemical/ointment on the wound. No tub baths, pools or jacuzzis for one month. If you have any leaking or redness from your wound, or fevers, please call office
--- NOTE | 2024-01-11 11:53 | P.OP_ITS ---
Operative Note Operative Note Date of Service: 01/11/24 Narrative: Preoperative Diagnosis: Spinal stenosis/lateral recess stenosis/neural foraminal stenosis Operation: Right L4-5 Laminotomy, Partial facetectomy and foraminotomy with use of microscope Consent Informed Consent was obtained for this operation. I have explained the nature, purpose and benefits of the operation. I have discussed the risks and benefit of the operation including possible complications or adverse events with patient/family. Alternative(s) were discussed with the patient with their relative benefits and risks as well as the consequences of not accepting the operation were included in obtaining consent. Surgeon: EDWINA ARTIS MD, PHD Procedure Assisted By: albania Balderas Description of Procedure This patient underwent an L2-L5 lumbar fusion. He continues to complain for right lumbar radiculopathy. We decided to offer him a right L4-5 lumbar decompression to decompress the L5 nerve root. The patient was offered a decompression of the nervous structures. The procedure complications were explained. The patient was consented. The patient was brought to the operating room and endotracheally intubated. The patient was turned in prone position on the Eben frame. Prep and drape was done followed by timeout. Physician trust manager assistant provided access. A mid lumbar incision was made followed by release of the paravertebral muscle on the right side to expose the L4-5 lamina and facet joint. An intraoperative x-ray was obtained to confirm the correct level. The microscope was brought in. I took over the procedure. The high-speed drill was used to do a L4-5 belinda laminotomy. And partial facetectomy. The L5 nerve root was identified and decompressed office trajectory into the foramen. The nerve was compressed from the medial facet. A good decompression was obtained. A long nerve hook could be easily passed lateral and dorsally from the nerve root, a sign of relief of the neuroforaminal stenosis and decompression of the nerve root . The microscope was removed. Hemostasis was done. Incision was closed in 2 layers. Steri-Strips were used to approximate incision. An OpSite with Tegaderm was used to cover the incision. All sponge needle counts were correct. Patient was extubated and transported in stable is to recovery room. Anesthesia: General Estimated Blood Loss (ml): Minimal Duration of Surgery: Under 60 Minutes Postoperative Plan: Discharge to home
[2024-01-11] MEDS: oxyCODONE HCl Immed Release 5 MG TABLET 10 MG PO (12:44)
[2024-01-11] MEDS: fentaNYL citrate/PF 100 MCG/2 ML VIAL 50 MCG IVPUSH ×4 (12:45→13:12)
[2024-01-11] MEDS: HYDROmorphone HCl 0.5 MG/0.5 ML SYRINGE 0.25 MG IVPUSH (14:05)
== END 2024-01-11 15:07 | disposition home or self-care (01) ==
PROVIDERS: PCP Internal Medicine; Visit Provider Neurological Surgery
PROC: (CPT 63047; principal; 2024-01-11 11:00)
DX: M48.062 Spinal stenosis, lumbar region with neurogenic claudication (principal); Z98.1 Arthrodesis status; Z98.890 Other specified postprocedural states; G47.33 Obstructive sleep apnea (adult) (pediatric); Z87.820 Personal history of traumatic brain injury; Z86.19 Personal history of other infectious and parasitic diseases; F17.210 Nicotine dependence, cigarettes, uncomplicated; Z79.899 Other long term (current) drug therapy; Z79.1 Long term (current) use of non-steroidal anti-inflammatories (NSAID); Z88.8 Allergy status to other drugs, medicaments and biological substances
CPT/HCPCS: 63047; J0131; J0690; J1100; J1170; J1200; J1885; J2250; J2405; J2704; J3010

== ENCOUNTER → 2024-01-11 10:10 | Outpatient (BNV) | payer OTHER, SELFPAY | PROVIDERS: PCP Internal Medicine; Visit Provider Physician Assistant | DX: M48.062 Spinal stenosis, lumbar region with neurogenic claudication (principal) | CPT/HCPCS: 63047; 99024 ==

== ENCOUNTER 2024-02-01 13:51 | Outpatient (AMB) | payer OTHER, SELFPAY ==
--- NOTE | 2024-02-01 14:03 | A.SPINEOV_ITS ---
Intake Intake Visit Reasons: 1st post Intake Note: Mr. Gutiérrez is here today for 1st post op. Project Manager Senior Required: No Allergies gabapentin Adverse Reaction (Verified 01/11/24 10:29) Blister Assessment & Plan Assessment & Plan (1) Lumbar stenosis with neurogenic claudication: Code(s): M48.062 - Spinal stenosis, lumbar region with neurogenic claudication (2) S/P spinal surgery: Code(s): Z98.890 - Other specified postprocedural states Plan Mr Gutiérrez is about 3 weeks out from his right L5 decompression. He is about 4 months out from his lumbar fusion. Unfortunately none of the surgeries we have done on him if given him any significant relief. He continues to have daily back discomfort with any kind of increase in activity will exacerbated significantly. He continues to have severe right leg pain. He has been using the Dilaudid, but he understands that we are at the end of our ability to refill these things for him. 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 We know that he has moderate stenosis above his fusion, but this would not be consistent with his symptom presentation and would be unlikely to be improved with further surgery. I would like him to be seen by our physiatry team for evaluation of possible spinal cord stimulator. I do not think there is any role for any further injections. I also gave him a referral to PT just to see if this could increase some of his activity and mobility. He can come back and see us down the road if anything changes. Kobe Ashby MD, PhD [facility] Orders: Orders PT Evaluation and Treatment Today M48.062 - Spinal stenosis, lumbar region with neurogenic claudication Referrals Physiatry Referral Z98.890 - Other specified postprocedural states Medications: Refilled hydromorphone (Dilaudid) Take 1/2 tab orally every 8 hours PRN severe pain; Partial Fill upon patient request. 21 tabs 0RF pain Coding Level of Care Code Global (39845) Diagnoses Lumbar stenosis with neurogenic claudication M48.062 S/P spinal surgery Z98.890
== END 2024-02-01 14:35 | disposition home or self-care (01) ==
PROVIDERS: PCP Internal Medicine; Visit Provider Physician Assistant
DX: M48.062 Spinal stenosis, lumbar region with neurogenic claudication (principal); Z98.890 Other specified postprocedural states
CPT/HCPCS: 99024

== ENCOUNTER → 2024-02-01 13:51 | Outpatient (BNVA) | payer OTHER, SELFPAY | PROVIDERS: PCP Internal Medicine; Visit Provider Physician Assistant | DX: Z09 Encounter for follow-up examination after completed treatment for conditions other than malignant neoplasm (principal); M48.062 Spinal stenosis, lumbar region with neurogenic claudication; Z98.890 Other specified postprocedural states | CPT/HCPCS: 99212 ==

== ENCOUNTER 2024-02-16 07:56 | Outpatient (AMB) | payer OTHER, SELFPAY ==
--- NOTE | 2024-02-16 08:01 | MHC.OFFVIS ---
Intake Vital Signs 02/16/24 08:03 Height 5 ft 10 in Weight 187 lb BMI 26.8 BP 143/83 H Blood Pressure Location Lt brachial Position Sitting Respiration 12 Pulse 86 Pulse Source Pulse Oximeter Pulse Oximetry (%) 99 Oxygen Delivery Method Room Air Intake Visit Reasons: failed back, eval for scs Allergies gabapentin Adverse Reaction (Verified 02/16/24 08:05) Blister Medication List - Last Reconciled 02/16/24 by Aissatou Krishnan LPN acetaminophen 500 mg PO TID PRN hydroxyzine HCl 50 mg PO Q8H PRN ibuprofen 400 mg PO Q8H trazodone 150 mg PO BEDTIME HPI failed back, eval for scs HPI Details 64-year-old male who presents today to the office for an evaluation of SCS for failed back syndrome. The patient had right L5 decompression and lumbar fusion in the past by Dr. Ashby with no relief. He continues to have daily back discomfort from any kind of strenuous activity. He reports right-sided back pain, hips, thighs, right leg, and foot. He rates his pain level at 8?10/10 in intensity. He has been using ice/cold compression, which alleviates his pain down to 2-3/10 in intensity.? He was taking Dilaudid, but Dr. Ashby is not providing a refill. He has also tried oxycodone 5 mg in the past but felt it was not working. He also takes Trazadone 150 mg for sleep aid at night. He also started physical therapy, which was ordered by PEGGY Steven. He is the primary caregiver for her mother. His mother was enrolled in a jail last week. He drinks alcohol several times a week. 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 [facility] Medical History (Updated 02/20/24 @ 16:44 by Joe Fernandez MD) Arthritis Back pain Sleep apnea Hepatitis C Ascending aorta dilatation History of traumatic head injury Surgical History (Updated 12/28/23 @ 09:52 by Deb Rapp RN) History of lumbar fusion Hx of fusion of cervical spine H/O colonoscopy Hx of arthroscopic knee surgery Hx of repair of rotator cuff Social History (Updated 09/29/23 @ 09:22 by Deb Rapp RN) Household Members: Other Household Members Other:: 3 Housing: House Are you a primary healthcare economics consultant to a significant other at home: Yes (shares care of parents with brother) Do you presently have visiting nurse or other home services: No Comment: all counts correct Patient Tobacco Use Status: Current everyday Tobacco user Tobacco use type: Cigarette Cigarettes Per Day: 15 Years Smoked: 51 service: No Review of Systems Const All systems reviewed & are unremarkable except as noted in HPI and below Physical Exam Vital Signs: Last Vital Signs Pulse 86 02/16/24 08:03 Resp 12 02/16/24 08:03 BP 143/83 H 02/16/24 08:03 Pulse Ox 99 02/16/24 08:03 Oxygen Delivery Method Room Air 02/16/24 08:03 BMI result Body Mass Index 26.8 General: Appears afebrile. Alert and oriented. Mood and affect appropriate. Follows and participates in conversation appropriately. Respiratory effort is unlabored. Able to transition from sit to stand unassisted. Ambulates with bilaterally normal heel strike and toe off. Results Reviewed Results Reviewed: No imaging is available for review. Assessment & Plan Assessment & Plan (1) Lumbar stenosis with neurogenic claudication: Code(s): M48.062 - Spinal stenosis, lumbar region with neurogenic claudication (2) Post laminectomy syndrome: Code(s): M96.1 - Postlaminectomy syndrome, not elsewhere classified Plan We discussed SCS vs. pain pump as a possible treatment option. I will place a referral for psychology clearance. Once we have received psychology clearance, we will plan for a trial with the SCS device. The patient will receive a call from [employer] for the psychology assessment. If he does not connect with [employer] in the next two weeks, he will call us. I also explained to the patient that he has to co-pay $100? for the evaluation. I will provide a script for Dilaudid 2 mg B.I.D. for interval pain management. I explained to the patient that we are not enrolling patients in the opioid program and that I will not be refilling this script. Scribed for Dr. Fernandez by Clemente Fountain, biomedical electronics technician, on 02/16/2024. I, Dr. Fernandez, have personally reviewed and agree with the information entered by the scribe. Medications: New hydromorphone Partial Fill upon patient request. D/C order for 2mg tabs sent 02/16/24 2 mg (1/2 x 4 mg) PO BID PRN 30 tabs 0RF pain 30 days Coding Level of Care Code New Pt Level 4 (82562) Diagnoses Lumbar stenosis with neurogenic claudication M48.062 Post laminectomy syndrome M96.1
[2024-02-16 08:03] VITALS: BP 143/83; PULSE 86; RESP 12; O2SAT 99; BMI 26.8
== END 2024-02-16 09:07 | disposition home or self-care (01) ==
PROVIDERS: PCP Internal Medicine; Referring Provider Internal Medicine; Visit Provider Internal Medicine
DX: M48.062 Spinal stenosis, lumbar region with neurogenic claudication (principal); M96.1 Postlaminectomy syndrome, not elsewhere classified
CPT/HCPCS: 99204

== ENCOUNTER → 2024-02-16 07:56 | Outpatient (BNVA) | payer OTHER, SELFPAY | PROVIDERS: PCP Internal Medicine; Referring Provider Internal Medicine; Visit Provider Internal Medicine | DX: M96.1 Postlaminectomy syndrome, not elsewhere classified (principal); M48.062 Spinal stenosis, lumbar region with neurogenic claudication; Z79.899 Other long term (current) drug therapy | CPT/HCPCS: 99202 ==

== ENCOUNTER 2024-04-11 06:16 | Outpatient (REF) | payer OTHER, SELFPAY ==
--- NOTE | ~2024-04-11 | FL_ITS ---
EXAMINATION: XR FLUOROSCOPY WITH IMAGES CLINICAL INFORMATION: Postlaminectomy syndrome. COMPARISON: None available. TECHNIQUE: Fluoroscopy Supervised By: Dr. Joe Fernandez. Fluoroscopy Time: 0.2 minutes. Cumulative Dose: 4.13 mGy. DAP: 0.0421 Gycm2. Images: 3. FINDINGS: Intraoperative fluoroscopy and spot films were performed during a procedure in the OR. A single needle is seen just to the right of the midline overlying the sacrum with contrast in the epidural space. Please see Dr. Joe Fernandez's report for complete details. FL/FL guidance in treatment room IMPRESSION: Intraoperative fluoroscopy and spot films were obtained. Please see Dr. Joe Fernandez's report for complete details.
== END 2024-04-11 06:17 | disposition home or self-care (01) ==
LOC: CF 06:16
PROVIDERS: Visit Provider Internal Medicine
DX: M96.1 Postlaminectomy syndrome, not elsewhere classified (principal); M54.16 Radiculopathy, lumbar region
CPT/HCPCS: 62323; J3301; Q9967

== ENCOUNTER 2024-04-11 10:35 | Outpatient (AMB) | payer OTHER, SELFPAY ==
--- NOTE | 2024-04-11 10:35 | A.OFFVIS_ITS ---
Vital Signs 04/11/24 11:22 04/11/24 11:23 Height 5 ft 10 in Weight 187 lb BMI 26.8 BP 168/84 H 164/84 H Blood Pressure Location Lt brachial Lt brachial Position Sitting Sitting Respiration 20 22 H Pulse 84 93 Pulse Source Pulse Oximeter Pulse Oximeter Pulse Oximetry (%) 99 96 Oxygen Delivery Method Room Air Room Air Comment Pre-Op Post-Op Intake Visit Reasons: caudal DAVE Allergies gabapentin Adverse Reaction (Verified 02/16/24 08:05) Blister HPI HPI caudal DAVE: Details: Patient presents for scheduled procedure. Denies any recent cough, cold, infection, fever or other significant changes in medical history since last office visit. [facility], [facility] Medical History (Updated 04/11/24 @ 15:16 by Joe Fernandez MD) Arthritis Back pain Sleep apnea Hepatitis C Ascending aorta dilatation History of traumatic head injury Surgical History (Updated 12/28/23 @ 09:52 by Deb Rapp RN) History of lumbar fusion Hx of fusion of cervical spine H/O colonoscopy Hx of arthroscopic knee surgery Hx of repair of rotator cuff Social History (Updated 09/29/23 @ 09:22 by Deb Rapp RN) Household Members: Other Household Members Other:: 3 Housing: House Are you a primary housekeeper caregiver to a significant other at home: Yes (shares care of parents with brother) Do you presently have visiting nurse or other home services: No Comment: all counts correct Patient Tobacco Use Status: Current everyday Tobacco user Tobacco use type: Cigarette Cigarettes Per Day: 15 Years Smoked: 51 service: No Physical Exam Vital Signs: Last Vital Signs Pulse 93 04/11/24 11:23 Resp 22 H 04/11/24 11:23 BP 164/84 H 04/11/24 11:23 Pulse Ox 96 04/11/24 11:23 Oxygen Delivery Method Room Air 04/11/24 11:23 BMI result Body Mass Index 26.8 Office Procedures Joint Injection/Drain Joint Injection/Drain Details: Caudal DAVE with catheter After obtaining written consent, pre-procedure blood pressure and pulse were m easured. Standard monitors were applied. The patient was placed in the prone position. The lumbosacral area was widely prepped with chloraprep and draped in sterile fashion. The skin overlying the target was anesthetized with 0.5% lidocaine. A 17 G needle was used to access the caudal epidural space using anatomic landmarks and x-ray guidance. We then injected contrast 1cc omnipaque 180 for verification of epidural spread up to the L5-S1 level. Following negative aspiration of heme or CSF, a mixture of 5 ml 0.5% lidocaine with 80 mg triamcinolone was injected with minimal pressure into the epidural space. The needle was removed, skin cleansed and a sterile bandage was applied. The patient tolerated the procedure well and no complications were encountered. Following the procedure the patient's vital signs were stable. The patient was discharged home in good condition with post-procedural instructions. Time Out: Immediately prior to the procedure, the following was verbally confirmed that there is a signed consent form and that the correct patient, planned procedure, site and side are consistent with documentation and that necessary equipment and/or blood products are available prior to the start of the case. Complications: none EBL: <5 cc Coding 28279 - Caudal/Lumbar Epidural/Interlaminar with fluoroscopy Procedure code (CPT) selection complete Assessment & Plan Assessment & Plan (1) Post laminectomy syndrome: Code(s): M96.1 - Postlaminectomy syndrome, not elsewhere classified Category: Medical (2) Lumbar radiculopathy: Code(s): M54.16 - Radiculopathy, lumbar region Category: Medical Plan Patient is status post caudal epidural steroid injection. Patient tolerated procedure well and was discharged home in stable condition with discharge instructions. All questions were answered. We will follow-up via telephone or in clinic to assess response to therapy. A follow-up appointment was made during today's visit. Orders: Orders FL guidance in treatment room Today M96.1 - Postlaminectomy syndrome, not elsewhere classified Coding Level of Care Code Procedure Only Diagnoses Post laminectomy syndrome M96.1 Lumbar radiculopathy M54.16 CPT Codes Coding - Joint 11: 64563 - Caudal/Lumbar Epidural/Interlaminar with fluoroscopy ([id number])
[2024-04-11 11:22] VITALS: BP 168/84; PULSE 84; RESP 20; O2SAT 99; BMI 26.8
[2024-04-11 11:23] VITALS: BP 164/84; PULSE 93; RESP 22; O2SAT 96
== END 2024-04-11 11:24 | disposition home or self-care (01) ==
LOC: HO.PMCPRC 10:35
PROVIDERS: PCP Internal Medicine; Visit Provider Internal Medicine
DX: M96.1 Postlaminectomy syndrome, not elsewhere classified (principal); M54.16 Radiculopathy, lumbar region
CPT/HCPCS: 62323

== ENCOUNTER 2024-05-10 10:58 | Outpatient (AMB) | payer OTHER, SELFPAY ==
--- NOTE | 2024-05-10 11:21 | A.OFFVIS_ITS ---
Vital Signs 05/10/24 11:22 Height 5 ft 10 in Weight 192 lb BMI 27.5 BP 161/72 H Blood Pressure Location Lt brachial Position Sitting Respiration 14 Pulse 80 Pulse Source Pulse Oximeter Pulse Oximetry (%) 97 Oxygen Delivery Method Room Air Intake Visit Reasons: s/p caudal DAVE Allergies gabapentin Adverse Reaction (Verified 05/10/24 11:24) Blister Medication List - Last Reconciled 05/10/24 by Aissatou Krishnan LPN acetaminophen 500 mg PO TID PRN hydromorphone 2 mg (1/2 x 4 mg) PO BID PRN 30 days hydroxyzine HCl 50 mg PO Q8H PRN ibuprofen 400 mg PO Q8H trazodone 150 mg PO BEDTIME HPI HPI s/p caudal DAVE: Details: 64-year-old male who presents today to the office for a status post caudal DAVE. The patient reports moderate relief following the procedure for two days, with subsequent return of symptoms. He reports pain in his whole lower back which radiates to the hip region and down to the leg. He is interested in proceeding with intrathecal therapy. He is looking for the provider to do his behavioral assessment who will accept his insurance. Past procedures 04/11/24: Caudal DAVE with catheter: Moderate relief for two days. [facility] Medical History (Updated 04/11/24 @ 15:16 by Joe Fernandez MD) Arthritis Back pain Sleep apnea Hepatitis C Ascending aorta dilatation History of traumatic head injury Surgical History (Updated 12/28/23 @ 09:52 by Deb Rapp RN) History of lumbar fusion Hx of fusion of cervical spine H/O colonoscopy Hx of arthroscopic knee surgery Hx of repair of rotator cuff Social History (Updated 09/29/23 @ 09:22 by Deb Rapp RN) Household Members: Other Household Members Other:: 3 Housing: House Are you a primary hearing care practitioner to a significant other at home: Yes (shares care of parents with brother) Do you presently have visiting nurse or other home services: No Comment: all counts correct Patient Tobacco Use Status: Current everyday Tobacco user Tobacco use type: Cigarette Cigarettes Per Day: 15 Years Smoked: 51 service: No Review of Systems Const All systems reviewed & are unremarkable except as noted in HPI and below Physical Exam Vital Signs: Last Vital Signs Pulse 80 05/10/24 11:22 Resp 14 05/10/24 11:22 BP 161/72 H 05/10/24 11:22 Pulse Ox 97 05/10/24 11:22 Oxygen Delivery Method Room Air 05/10/24 11:22 BMI result Body Mass Index 27.5 General: Appears afebrile. Alert and oriented. Mood and affect appropriate. Follows and participates in conversation appropriately. Respiratory effort is unlabored. Able to transition from sit to stand unassisted. Ambulates with bilaterally normal heel strike and toe off. Results Reviewed Results Reviewed: No imaging is available for review. Assessment & Plan Assessment & Plan (1) Post laminectomy syndrome: Code(s): M96.1 - Postlaminectomy syndrome, not elsewhere classified Category: Medical (2) Lumbar radiculopathy: Code(s): M54.16 - Radiculopathy, lumbar region Category: Medical Plan He is interested in proceeding with a trial of intrathecal therapy. He is looking for providers who will schedule his behavioral assessment. Once we get a behavioral assessment, we will schedule him for a trial of fentanyl intrathecal therapy.? Scribed for Dr. Fernandez by Clemente Fountain, medical care evaluation specialist, on 05/10/2024. I, Dr. Fernandez, have personally reviewed and agree with the information entered by the scribe. Coding Level of Care Code Est Pt Level 3 (98058) Diagnoses Post laminectomy syndrome M96.1 Lumbar radiculopathy M54.16
[2024-05-10 11:22] VITALS: BP 161/72; PULSE 80; RESP 14; O2SAT 97; BMI 27.5
== END 2024-05-10 11:49 | disposition home or self-care (01) ==
PROVIDERS: PCP Internal Medicine; Visit Provider Internal Medicine
DX: M96.1 Postlaminectomy syndrome, not elsewhere classified (principal); M54.16 Radiculopathy, lumbar region
CPT/HCPCS: 99213

== ENCOUNTER → 2024-05-10 10:58 | Outpatient (BNVA) | payer OTHER, SELFPAY | PROVIDERS: PCP Internal Medicine; Visit Provider Internal Medicine | DX: M54.16 Radiculopathy, lumbar region (principal); M96.1 Postlaminectomy syndrome, not elsewhere classified | CPT/HCPCS: 99212 ==

== ENCOUNTER 2024-10-10 14:45 | Outpatient (REF) | payer OTHER, SELFPAY ==
--- NOTE | ~2024-10-10 | XR_ITS ---
EXAMINATION: XR LUMBAR SPINE CLINICAL INFORMATION: Dorsalgia, unspecified M54.9. COMPARISON: XR Lumbar spine 12/15/2023 TECHNIQUE: 4 views of lumbar spine were obtained. FINDINGS: The patient is status post posterior fusion with intervertebral disc spacers at L3-S1. Advanced degenerative disc disease with minimal retrolisthesis of L2 on L3 which is stable on flexion and extension views. Moderate degenerative disc disease at L1-L2. There is atherosclerotic calcification in the aorta. XR/XR lumbar spine 4V min IMPRESSION: 1. Status post posterior fusion L3-S1. 2. Advanced degenerative disc disease with minimal retrolisthesis of L2 on L3. Electronically signed by: Alejandro Rascon MD 11/12/2024 09:56 AM EST
== END 2024-10-10 14:46 | disposition home or self-care (01) ==
LOC: HO.HOSX 14:45
PROVIDERS: PCP Internal Medicine; Visit Provider Physician Assistant
DX: M54.9 Dorsalgia, unspecified (principal); Z98.1 Arthrodesis status
CPT/HCPCS: 72110; 99212

== ENCOUNTER 2024-10-10 14:45 | Outpatient (AMB) | payer OTHER, SELFPAY ==
--- NOTE | 2024-10-10 15:08 | MHC.OFFVIS ---
Intake Visit Reasons: Back pain Allergies gabapentin Adverse Reaction (Verified 05/10/24 11:24) Blister [facility] Medical History (Updated 10/10/24 @ 15:07 by KENDELL Ignacio) Arthritis Back pain Sleep apnea Hepatitis C Ascending aorta dilatation History of traumatic head injury Surgical History (Updated 12/28/23 @ 09:52 by Deb Rapp, RN) History of lumbar fusion Hx of fusion of cervical spine H/O colonoscopy Hx of arthroscopic knee surgery Hx of repair of rotator cuff Social History (Updated 09/29/23 @ 09:22 by Deb Rapp, KAMLESH) Household Members: Other Household Members Other:: 3 Housing: House Are you a primary medicare nurse to a significant other at home: Yes (shares care of parents with brother) Do you presently have visiting nurse or other home services: No Comment: all counts correct Patient Tobacco Use Status: Current everyday Tobacco user Tobacco use type: Cigarette Cigarettes Per Day: 15 Years Smoked: 51 service: No Assessment & Plan Assessment & Plan (1) Back pain: Code(s): M54.9 - Dorsalgia, unspecified Category: Medical Plan Mr Gutiérrez is known to us from a lumbar fusion, postoperative laminotomy who has had chronic pain issues. About a week or so ago, he tripped over his cat and fell right to the floor. Fell onto his side. Immediately he felt like something was not right. He the ambulance had to come pick him up off the floor. He did not want to go to the emergency room as he knew there would be a long wait to get treated. He has been sitting home the last week, getting around with a cane just barely able to function. He has shooting pain down his right leg. No cauda equina symptoms. He has been taking [id number] pain medications as needed. I examined him, he appears uncomfortable he is slow to stand up with a cane. He has tenderness over his lumbar spine. He does not have any focal motor deficits although he has reduced range of motion. No sensory or reflex changes. I am going to order x-rays and an MRI. Once those are completed I will give him a call. Total amount of time spent in this visit was 20 minutes in discussion of symptoms, ordering MRI and x-ray imaging and subsequent plan of care Kobe Ashby MD,PhD [facility] Orders: Orders MR lumbar spine wo/w con Today M54.9 - Dorsalgia, unspecified XR lumbar spine 4V min Today M54.9 - Dorsalgia, unspecified Coding Level of Care Code Est Pt Level 3 (14694) Diagnoses Back pain M54.9
== END 2024-10-10 15:45 ==
PROVIDERS: PCP Internal Medicine; Visit Provider Physician Assistant
DX: M54.9 Dorsalgia, unspecified (principal)
CPT/HCPCS: 99213